=== PATIENT | female | born 1935 | race Asian ===

== ENCOUNTER 2018-05-27 19:15 | Inpatient (IN) | payer MEDICARE, OTHER ==
[2018-05-28 02:05] LABS: ADD MAN DIFF? NO
[2018-05-28 02:08] LABS: WHITE BLOOD COUNT 9.6 10^3/ul (4.8-10.8)
[2018-05-28 02:08] LABS: BASOPHIL # 0.1 10^3/ul (0.0-0.1); BASOPHILS % 0.5 % (0.0-2.0); EOSINOPHILS # 0.2 10^3/ul (0.0-0.5); EOSINOPHILS % 2.1 % (0.0-7.0); HEMOGLOBIN 12.4 g/dl (12.0-16.0); LYMPHOCYTES # 4.2 10^3/ul (0.8-2.9); LYMPHOCYTES % 43.2 % (15.0-51.0); MEAN CORPUSCULAR HEMOGLOBIN 28.6 pg (29.0-33.0); MEAN CORPUSCULAR HGB CONC 31.8 g/dl (32.0-37.0); MEAN CORPUSCULAR VOLUME 90.1 fl (82.0-101.0); MEAN PLATELET VOLUME 10.2 fl (7.4-10.4); MONOCYTE # 0.6 10^3/ul (0.3-0.9); MONOCYTES % 6.5 % (0.0-11.0); NEUTROPHIL # 4.6 10^3/ul (1.6-7.5); NEUTROPHILS % 47.4 % (39.0-77.0); PLATELET COUNT 242 10^3/UL (140-415); RED BLOOD COUNT 4.33 10^6/ul (4.20-5.40); RED CELL DISTRIBUTION WIDTH 13.4 % (11.5-14.5)
[2018-05-28 02:45] LABS: ANION GAP 14 (8-16); BLOOD UREA NITROGEN 36 mg/dl (7-20); CALCIUM 9.2 mg/dl (8.4-10.2); CARBON DIOXIDE 27 mmol/L (21-31); CHLORIDE 109 mmol/L (97-110); CREATININE 1.73 mg/dl (0.44-1.00); GLUCOSE 147 mg/dl (70-220); SODIUM 146 mmol/L (135-144)
[2018-05-28 02:57] LABS: B-TYPE NATRIURETIC PEPTIDE 312 PG/ML (0-450)
[2018-05-28 02:58] LABS: TROPONIN-I < 0.012 ng/ml (0.000-0.120)
[2018-05-28] MEDS: ASPIRIN 325 MG TAB PO (03:18)
[2018-05-28] MEDS: SOD CHLORIDE 0.9% 1,000 ML IV (04:54)
[2018-05-28] MEDS: FLUORESCEIN STRIP RIGHT EYE (04:58)
[2018-05-28] MEDS: ONDANSETRON 4 MG INJ IV (06:48)
[2018-05-28] MEDS: morphine 4 MG/ML VIAL IV (06:48)
[2018-05-28] MEDS: VALACYCLOVIR 500 MG TAB PO (06:55)
[2018-05-28] MEDS: LABETALOL HCL 20MG INJ IV (07:35)
[2018-05-28] MEDS: hydrALAzine 20 MG INJ IV (07:40)
[2018-05-28 08:33] LABS: CREATINE KINASE 65 IU/L (23-200)
[2018-05-28 08:45] LABS: CK INDEX 0.4; CK-MB 0.29 ng/ml (0.0-2.4)
[2018-05-28 08:49] LABS: TROPONIN-I < 0.012 ng/ml (0.000-0.120)
[2018-05-28] MEDS ORDERED: ONDANSETRON 4 MG INJ IV (10:00)
[2018-05-28] MEDS ORDERED: HYDROCODONE/APAP (5/325) TAB PO (10:00)
[2018-05-28] MEDS ORDERED: NACL 0.9% 3 ML SYG IV (10:00)
[2018-05-28] MEDS ORDERED: hydrALAzine 20 MG INJ IV (10:30)
[2018-05-28] MEDS ORDERED: DEXTROSE 50% 50 ML SYRINGE IV ×2 (11:00)
[2018-05-28] MEDS ORDERED: GLUCAGON 1 MG INJ IM (11:00)
[2018-05-28] MEDS ORDERED: GLUCOSE GEL 15 GRAM TUBE PO ×2 (11:00)
[2018-05-28] MEDS ORDERED: GLUCOSE GEL 15 GRAM TUBE BUCCAL (11:00)
[2018-05-28] MEDS: NIFEdipine (XL) 30 MG TAB PO ×2 (11:02→20:55)
[2018-05-28] MEDS ORDERED: VALACYCLOVIR 500 MG TAB PO ×2 (11:30→21:00)
[2018-05-28] MEDS: INSULIN ASPART [NOVOLOG] 3 ML PEN SC ×5 (11:50→20:56)
[2018-05-28] MEDS: HEPARIN 5,000 UNIT/0.5 ML VIAL SC ×2 (13:23→21:06)
[2018-05-28 15:22] LABS: CREATINE KINASE 62 IU/L (23-200)
[2018-05-28 15:34] LABS: CK INDEX 0.6; CK-MB 0.35 ng/ml (0.0-2.4)
[2018-05-28 15:39] LABS: TROPONIN-I < 0.012 ng/ml (0.000-0.120)
[2018-05-28 15:49] LABS: FREE T4 (FREE THYROXINE) 1.37 ng/dl (0.85-1.93)
[2018-05-28 16:02] LABS: HEMOGLOBIN A1C 6.2 % (0-5.9)
[2018-05-28] MEDS: DOCUSATE SODIUM 100 MG CAP PO (20:54)
[2018-05-28] MEDS: ATORVASTATIN 20 MG TAB PO (20:54)
[2018-05-28] MEDS: GABAPENTIN 300 MG CAP PO (20:54)
[2018-05-28] MEDS: INSULIN GLARGINE [LANtus] 3 ML PEN SC (21:05)
[2018-05-29] MEDS: HEPARIN 5,000 UNIT/0.5 ML VIAL SC ×3 (05:36→22:00)
[2018-05-29] MEDS: INSULIN ASPART [NOVOLOG] 3 ML PEN SC ×7 (07:55→20:22)
[2018-05-29 07:56] LABS: ADD MAN DIFF? NO
[2018-05-29 08:01] LABS: WHITE BLOOD COUNT 8.1 10^3/ul (4.8-10.8)
[2018-05-29 08:01] LABS: BASOPHIL # 0.1 10^3/ul (0.0-0.1); BASOPHILS % 0.6 % (0.0-2.0); EOSINOPHILS # 0.2 10^3/ul (0.0-0.5); HEMATOCRIT 38.4 % (37.0-47.0); HEMOGLOBIN 12.3 g/dl (12.0-16.0); LYMPHOCYTES # 3.9 10^3/ul (0.8-2.9); LYMPHOCYTES % 48.5 % (15.0-51.0); MEAN CORPUSCULAR HEMOGLOBIN 28.8 pg (29.0-33.0); MEAN CORPUSCULAR VOLUME 89.9 fl (82.0-101.0); MEAN PLATELET VOLUME 10.2 fl (7.4-10.4); MONOCYTE # 0.5 10^3/ul (0.3-0.9); NEUTROPHIL # 3.4 10^3/ul (1.6-7.5); NEUTROPHILS % 41.5 % (39.0-77.0); PLATELET COUNT 212 10^3/UL (140-415); RED BLOOD COUNT 4.27 10^6/ul (4.20-5.40); RED CELL DISTRIBUTION WIDTH 13.5 % (11.5-14.5)
[2018-05-29 08:17] LABS: CREATINE KINASE 61 IU/L (23-200)
[2018-05-29] MEDS: LEVOTHYROXINE 88 MCG TAB PO (08:24)
[2018-05-29] MEDS: GABAPENTIN 300 MG CAP PO ×2 (08:25→20:29)
[2018-05-29] MEDS: NIFEdipine (XL) 30 MG TAB PO ×2 (08:25→20:29)
[2018-05-29] MEDS: CLOPIDOGREL 75 MG TAB PO (08:26)
[2018-05-29] MEDS: VALACYCLOVIR 500 MG TAB PO (08:26)
[2018-05-29] MEDS: DOCUSATE SODIUM 100 MG CAP PO ×2 (08:26→20:29)
[2018-05-29 08:30] LABS: ALANINE AMINOTRANSFERASE 27 IU/L (13-69); ALBUMIN 3.7 g/dl (3.3-4.9); ALBUMIN/GLOBULIN RATIO 1.32; ALKALINE PHOSPHATASE 74 IU/L (42-121); ANION GAP 16 (8-16); ASPARTATE AMINO TRANSFERASE 16 IU/L (15-46); BILIRUBIN,INDIRECT 0.5 mg/dl (0-1.1); BILIRUBIN,TOTAL 0.5 mg/dl (0.2-1.3); BLOOD UREA NITROGEN 23 mg/dl (7-20); CARBON DIOXIDE 26 mmol/L (21-31); CHLORIDE 106 mmol/L (97-110); CK INDEX 0.7; CK-MB 0.42 ng/ml (0.0-2.4); CREATININE 1.17 mg/dl (0.44-1.00); GLUCOSE 109 mg/dl (70-220); POTASSIUM 4.1 mmol/L (3.5-5.1); SODIUM 144 mmol/L (135-144); TOTAL PROTEIN 6.5 g/dl (6.1-8.1)
[2018-05-29 08:39] LABS: TROPONIN-I < 0.012 ng/ml (0.000-0.120)
[2018-05-29 09:31] LABS: PHOSPHORUS 3.7 mg/dl (2.5-4.9)
[2018-05-29 09:31] LABS: CHOL/HDL RATIO 3.8 RATIO; CHOLESTEROL 146 mg/dl (100-200); HDL CHOLESTEROL 38 mg/dl (33-92); LDL CHOLESTEROL,CALCULATED 85 mg/dl; MAGNESIUM 1.8 mg/dl (1.7-2.5); TRIGLYCERIDES 116 mg/dl (0-149)
[2018-05-29] MEDS ORDERED: HEPARIN 5,000 UNIT/0.5 ML VIAL SC (14:00)
[2018-05-29] MEDS: LORAZEPAM 2 MG INJ IV (14:42)
[2018-05-29] MEDS: INSULIN GLARGINE [LANtus] 3 ML PEN SC (20:27)
[2018-05-29] MEDS: ATORVASTATIN 20 MG TAB PO (20:29)
[2018-05-29] MEDS: ACETAMINOPHEN 325 MG TAB PO (22:25)
[2018-05-29] MEDS: DIPHENHYDRAMINE 50 MG CAP PO (22:56)
[2018-05-30 06:01] LABS: ADD MAN DIFF? NO
[2018-05-30 06:21] LABS: WHITE BLOOD COUNT 8.4 10^3/ul (4.8-10.8)
[2018-05-30 06:21] LABS: BASOPHILS % 0.5 % (0.0-2.0); EOSINOPHILS # 0.2 10^3/ul (0.0-0.5); EOSINOPHILS % 2.7 % (0.0-7.0); HEMATOCRIT 35.8 % (37.0-47.0); HEMOGLOBIN 11.6 g/dl (12.0-16.0); LYMPHOCYTES # 4.4 10^3/ul (0.8-2.9); LYMPHOCYTES % 51.8 % (15.0-51.0); MEAN CORPUSCULAR HEMOGLOBIN 29.1 pg (29.0-33.0); MEAN CORPUSCULAR HGB CONC 32.4 g/dl (32.0-37.0); MEAN CORPUSCULAR VOLUME 89.7 fl (82.0-101.0); MEAN PLATELET VOLUME 10.3 fl (7.4-10.4); MONOCYTE # 0.5 10^3/ul (0.3-0.9); MONOCYTES % 6.4 % (0.0-11.0); NEUTROPHIL # 3.2 10^3/ul (1.6-7.5); NEUTROPHILS % 38.4 % (39.0-77.0); PLATELET COUNT 213 10^3/UL (140-415); RED BLOOD COUNT 3.99 10^6/ul (4.20-5.40); RED CELL DISTRIBUTION WIDTH 13.5 % (11.5-14.5)
[2018-05-30] MEDS: HEPARIN 5,000 UNIT/0.5 ML VIAL SC (06:21)
[2018-05-30 06:54] LABS: ALANINE AMINOTRANSFERASE 22 IU/L (13-69); ALBUMIN 3.5 g/dl (3.3-4.9); ALKALINE PHOSPHATASE 67 IU/L (42-121); ANION GAP 15 (8-16); ASPARTATE AMINO TRANSFERASE 21 IU/L (15-46); BILIRUBIN,INDIRECT 0.4 mg/dl (0-1.1); BILIRUBIN,TOTAL 0.4 mg/dl (0.2-1.3); BLOOD UREA NITROGEN 25 mg/dl (7-20); CALCIUM 8.8 mg/dl (8.4-10.2); CARBON DIOXIDE 25 mmol/L (21-31); CHLORIDE 107 mmol/L (97-110); CREATININE 1.39 mg/dl (0.44-1.00); GLUCOSE 116 mg/dl (70-220); POTASSIUM 4.2 mmol/L (3.5-5.1); SODIUM 143 mmol/L (135-144); TOTAL PROTEIN 6.4 g/dl (6.1-8.1)
[2018-05-30 06:56] LABS: MAGNESIUM 1.8 mg/dl (1.7-2.5)
[2018-05-30 06:56] LABS: PHOSPHORUS 3.7 mg/dl (2.5-4.9)
[2018-05-30] MEDS: INSULIN ASPART [NOVOLOG] 3 ML PEN SC ×4 (08:08→12:28)
[2018-05-30] MEDS: LEVOTHYROXINE 88 MCG TAB PO (08:09)
[2018-05-30] MEDS: VALACYCLOVIR 500 MG TAB PO (09:41)
[2018-05-30] MEDS: GABAPENTIN 300 MG CAP PO (09:42)
[2018-05-30] MEDS: NIFEdipine (XL) 30 MG TAB PO (09:42)
[2018-05-30] MEDS: DOCUSATE SODIUM 100 MG CAP PO (09:42)
[2018-05-30] MEDS: CLOPIDOGREL 75 MG TAB PO (09:42)
[2018-05-30] MEDS: SOD CHLORIDE 0.9% 1,000 ML IV (09:42)
== END 2018-05-30 14:05 | disposition home or self-care (01) | DRG 596 ==
LOC: E/R 19:15 → MS2 05-29 12:55 → TEL 05-28 06:11
DX: B02.9 Zoster without complications (principal); N17.9 Acute kidney failure, unspecified; I69.354 Hemiplegia and hemiparesis following cerebral infarction affecting left non-dominant side; E87.0 Hyperosmolality and hypernatremia; I16.0 Hypertensive urgency; E03.9 Hypothyroidism, unspecified; I10 Essential (primary) hypertension; E78.5 Hyperlipidemia, unspecified; E11.9 Type 2 diabetes mellitus without complications; Z79.4 Long term (current) use of insulin; Z74.01 Bed confinement status; Z79.02 Long term (current) use of antithrombotics/antiplatelets
CPT/HCPCS: 36415; 71045; 80048; 80053; 80061; 82550; 82553; 82962; 83036; 83735; 83880; 84100; 84439; 84443; 84484; 85025; 86694; 93005; 93306; 96374; 96375; 99291-25